=== PATIENT | male | born 1965 | race Caucasian/White ===

== ENCOUNTER → 2019-12-02 | Outpatient (CLI) | payer OTHER ==
[~2019-12-02] VITALS: Ht 177.8 cm; Wt 86.6 kg
[~2019-12-02] MED LIST: ACETAMINOPHEN325 M1 PO; ALLOPURINOL 10100 M1 PO; ALLOPURINOL 10100 M3 PO; ALUMINUM H320 MG/5 M PO; ASPIR-TRIN325 MG PO; CATAPRES0.1 MG PO; CEFUROXIME250 MG PO; COLACE100 MG PO; CRESTOR20 MG PO; DULOXETINE HCL30 MG PO; FISH OIL 1,0001 EAC8 PO; FLOMAX0.4 MG PO; FUROSEMIDE 20 M20 MG PO; GABAPENTIN100 MG PO; GLIPIZIDE 10 MG10 MG PO; HUMALOG100 UNIT/1 SUBQ; HYDRALAZINE 2525 M1 PO; LISINOPRIL-HCT1 EAC1 PO; LISINOPRIL2.5 MG PO; LITE COAT ASPI325 MG PO; LOVENOX30 MG/0.3 SUBQ; MECLIZINE HCL25 M1 PO; MELATONIN3 M1 PO; MIRALAX119 GM PO; MITIGARE0.6 MG PO; NICOTINE TRANSD14 M1 TRANSDERM; NORCO 10-325 T1 EACH PO; NORVASC 2.5 MG2.5 M1 PO; NORVASC5 M1 PO; PRADAXA150 MG PO; PROAIR HFA8.5 GM INH; SENNA8.6 MG PO; TOPROL XL25 MG PO; TRAMADOL 50 MG50 MG PO; TYLENOL325 MG PO; VITAMIN D325 MC5 PO; VOLTAREN GEL 1100 G1 TOP
[2019-12-02 09:00] VITALS: BP 172/82
--- NOTE | 2019-12-02 09:29 | EKG ---
[facility] [place] [address] ELECTROCARDIOGRAM REPORT Name: SARAH MOLINA Room #: [facility].#: [id number] Admission: 12/02/19 Attend Phys: Hugo Moyer MD Discharge: Date of : 61 Report #: [id number] THIS REPORT FOR: cc: FAM - Family physician unknown FAM - Family physician unknown Connor Rosado MD [facility] ~ THIS REPORT FOR: //name// [facility] Test Date: 2019-12-02 Test Time: 08:58:40 Pat Name: SARAH MOLINA Department: Room: Gender: Front Of House Manager: [facility] : 1965 Requested By: Hugo Moyer Order Number: [id number] MD: Connor Rosado Measurements Intervals [place] Rate: 58 P: -11 UT: 199 QRS: -38 QRSD: 88 T: 20 QT: 426 QTc: 419 Interpretive Statements Sinus rhythm Leftward axis Compared to ECG 10/03/2008 09:36:20 No significant change was found Electronically Signed On 12-02-2019 9:29:28 CDT by Connor Rosado [email or web address] <ELECTRONICALLY SIGNED> By: Connor Rosado MD, FAC 12/02/19 [id number] [id number] Connor Rosado MD, [facility] /EPI
[2019-12-02 09:36] LABS: HEMATOCRIT 45.7 % (42.0-52.0); HEMOGLOBIN 15.1 gm/dL (14.0-18.0); MCH 28.3 pg (26.0-34.0); MCHC 33.1 g/dL (28.0-37.0); MCV 85.6 fL (80.0-100.0); RBC 5.34 mil/uL (4.50-6.00); RDW 14.4 % (10.5-14.5); WBC 9.1 thou/uL (4.0-11.0)
[2019-12-02 09:58] LABS: CALCIUM 8.9 mg/dL (8.5-10.1); CREATININE 1.5 mg/dL (0.7-1.3); POTASSIUM 4.1 mmol/L (3.5-5.1)
[2019-12-02 12:15] VITALS: BP 129/65
[2019-12-02 12:30] VITALS: BP 136/67
[2019-12-02 12:45] VITALS: BP 136/67
[2019-12-02 13:35] VITALS: BP 101/70
[2019-12-02 14:52] VITALS: BP 163/77
== END | disposition home or self-care (01) ==
LOC: CATH 08:02
PROVIDERS: ATTEND Nuclear Medicine Nuclear Cardiology
DX: I70.213 Atherosclerosis of native arteries of extremities with intermittent claudication, bilateral legs (principal); I70.1 Atherosclerosis of renal artery; M86.8X7 Other osteomyelitis, ankle and foot; I10 Essential (primary) hypertension; E11.9 Type 2 diabetes mellitus without complications; E78.5 Hyperlipidemia, unspecified; K21.9 Gastro-esophageal reflux disease without esophagitis; Z98.890 Other specified postprocedural states; Z79.899 Other long term (current) drug therapy

== ENCOUNTER 2020-10-20 16:21 | Inpatient (IN) | payer OTHER ==
[~2020-10-20] VITALS: Ht 177.8 cm; Wt 71.2 kg
[~2020-10-20 16:21] MED LIST changes: -CATAPRES0.1 MG PO; +CATAPRES0.2 MG PO
[2020-10-20 17:10] VITALS: BP 122/58
[2020-10-20] MEDS ORDERED: NORVASC5 MG PO (18:11)
[2020-10-20] MEDS ORDERED: AMITRIPTYLINE H10 M1 PO (18:11)
[2020-10-20] MEDS ORDERED: ASPERCREME1 EACH TOP ×2 (18:12→18:13)
[2020-10-20] MEDS ORDERED: BACLOFEN 10MG T10 MG PO (18:14)
[2020-10-20] MEDS ORDERED: BACTRIM DS TAB1 EAC1 PO (18:16)
[2020-10-20] MEDS ORDERED: BIOFREEZE118 ML TOP (18:17)
[2020-10-20] MEDS ORDERED: CLARITIN10 M3 PO (18:21)
[2020-10-20] MEDS ORDERED: CORICIDIN COLD1 EACH PO (18:26)
[2020-10-20] MEDS ORDERED: FLONASE 0.05%50 MCG NARES (18:28)
[2020-10-20] MEDS ORDERED: HUMALOG100 UNIT/1 SUBQ (18:29)
[2020-10-20] MEDS ORDERED: HYDRALAZINE 2525 MG PO (18:30)
[2020-10-20] MEDS ORDERED: NORCO 10-325 T1 EACH PO (18:31)
[2020-10-20] MEDS ORDERED: MILK OF MA400 MG/5 M PO (18:34)
[2020-10-20] MEDS ORDERED: ONDANSETRON ODT4 MG PO (18:36)
[2020-10-20] MEDS ORDERED: PROTONIX40 M2 PO (18:36)
[2020-10-20] MEDS ORDERED: TOPROL XL25 MG PO (18:39)
[2020-10-20] MEDS ORDERED: VOLTAREN ARTHRI20 GM TOP (18:41)
[2020-10-20] MEDS ORDERED: ZADITOR5 M1 OPHTHALMIC (18:43)
--- NOTE | 2020-10-20 19:27 | NUR ---
Pt received as direct admit from senior living facility. Assessed pt. Left side weakness noted. Left hand is contacted. Unable to ambulate. Uses sunday lift in [employer] and electric wheelchairto get around. He has been a half pack smoker for last twenty years. He does not plan on stopping smoking. His lungs were diminished ambulance had him on 2L/NC. He needs assistance with all ADL's except for eating. Fall risk precaution in effect. Bed in low position. Call light within reach. Gave report to night nurse.
[2020-10-20 19:46] VITALS: BP 105/59
[2020-10-20 20:39] LABS: URINE BILIRUBIN 1+ (Negative); URINE BLOOD TRACE (Negative); URINE CLARITY CLEAR; URINE COLOR YELLOW; URINE GLUCOSE-RANDOM* NEGATIVE (Negative); URINE KETONES NEGATIVE (Negative); URINE LEUKOCYTES-REFLEX NEGATIVE (Negative); URINE NITRITE-REFLEX NEGATIVE (Negative); URINE PROTEIN (DIPSTICK) 2+ (Negative); URINE SPECIFIC GRAVITY 1.025 (1.005-1.035)
--- NOTE | 2020-10-21 02:47 | NUR ---
ASSESSED AT START OF SHIFT. PT RESTING IN BED. DENIES PAIN N/V. IV INTACT AND FLUIDS INFUSING. PT VOIDS VIA URINAL. FALL PREC IN PLACE. CLEAR LUNGS SOUNDS CALL LIGHT AT REACH. BIANCA LOWER EXT ELEVATED ON PILLOW. NO FURTHER SIGNS OF DISCOMFORT WILL CONT TO MONITOR.
[2020-10-21 04:21] VITALS: BP 112/63
[2020-10-21 05:38] LABS: ABSOLUTE NEUTROPHILS 5.8 thou/uL (1.4-8.2); BASOPHILS 0.3 % (0.0-2.0); EOSINOPHILS 1.1 % (0.0-3.0); HEMATOCRIT 40.9 % (42.0-52.0); HEMOGLOBIN 13.3 gm/dL (14.0-18.0); LYMPHOCYTES 25.7 % (24.0-44.0); MCH 28.5 pg (26.0-34.0); MCHC 32.4 g/dL (28.0-37.0); MONOCYTES 6.2 % (1.0-8.0); PLATELET COUNT 135 thou/uL (150-400); POLYS 66.7 % (36.0-66.0); RBC 4.65 mil/uL (4.50-6.00); RDW 14.7 % (10.5-14.5); WBC 8.7 thou/uL (4.0-11.0)
[2020-10-21 05:48] LABS: ALBUMIN 2.6 g/dL (3.4-5.0); CALCIUM 8.6 mg/dL (8.5-10.1); CREATININE 2.6 mg/dL (0.7-1.3); PHOSPHORUS 3.8 mg/dL (2.5-4.9); POTASSIUM 3.7 mmol/L (3.5-5.1)
[2020-10-21 07:58] VITALS: BP 129/69
--- NOTE | 2020-10-21 14:57 | NUR ---
ASSESSMENT: CM REVIEWED CHART AND SPOKE WITH PATIENT AT THE BEDSIDE. PT WAS TRANSFERRED FROM [facility]. PT HAD INCREASED REGULATORY INTERNSHIP THEY BELIEVE IS DUE TO HIM TAKING BACTRIM. PT IS ON IV FLUIDS AND PROGRESSING. PT IS FROM [facility] WHERE HE IS A LTC RESIDENT. CM SPOKE WITH MADELINE IN ADMISSIONS WHO CONFIRMS INFORMATION AND REPORTS HE HAS [place] MEDICAID. CM NOTIFIED UR RN THAT HE LIKELY HAS [place] MED[place]ID SECONDARY. PT REPORTS THAT HE IS WHEELCHAIR BOUND AND USES POWER CHAIR. PT HAS PAST HX OF CVA AND LEFT SIDED HEMIPARESIS. CM FAXED UPDATED CLINICAL TO [facility] AND NOTIFIED OF ANTICIPATED DISCHARGE SOON. PT REPORTS THAT HE DOES NOT HAVE ANY FAMILY CM NEEDS TO CONTACT AT THIS TIME. CM WILL CONTINUE TO FOLLOW TO ASSIST NEEDED.
[2020-10-21 16:38] VITALS: BP 136/70
[2020-10-21 18:54] VITALS: BP 151/70
--- NOTE | 2020-10-21 19:31 | NUR ---
ASSUMED PT CARE THIS AM. PT IS ALERT & ORIENTED X4. PT HAS IV SITE ON RFA RUNNING NS @100ML/HR. PT USES BEDPAN AND URINAL. PT IS ON ROOM AIR. PT HAS L SIDED WEAKNESS. NO C/O OF PAIN, NAUSEA AND VOMITING. PT IS ACCUCHECK ACHS. PHYSICAL AND OCCUPATIONAL THERAPY WAS WORKING WITH PT TODAY. PT TOLERATED DIET AND MEDICATION WELL. PT ON THE BED, BED ON THE LOWEST POSITION, SIDE RAILS UP, CALL LIGHT WITHIN REACH. WILL CONTINUE TO MONITOR PT. FOLLOW POC.
--- NOTE | 2020-10-22 01:42 | NUR ---
ASSESSED AT START OF SHIFT PT A&OX4. DENIES PAIN, NAUSEA AND VOMITING ON ASSESSMENT. IV INTACT AND FLUIDS INFUSING. URINAL AT BEDSIDE. PT ON RA SATS AT 99%. CLEAR LUNGS SOUNDS. REPOSITIONED PT FOR COMFORT. FALL PREC INPLACE AND CALL LIGHT AT REACH WILL CONT TO MONITOR.
[2020-10-22 04:17] VITALS: BP 153/74
[2020-10-22 06:06] LABS: ALBUMIN 2.5 g/dL (3.4-5.0); CALCIUM 8.5 mg/dL (8.5-10.1); CREATININE 1.9 mg/dL (0.7-1.3); POTASSIUM 3.5 mmol/L (3.5-5.1)
[2020-10-22 07:15] VITALS: BP 179/80
--- NOTE | 2020-10-22 12:02 | NUR ---
on-going assessment: CM REVIEWED CHART AND SPOKE WITH ATTENDING WHO REPORTS PT WILL LIKELY DISCHARGE BACK TO HIS FACILITY TOMORROW. PTS FORK OPERATOR STILL ELEVATED AT 1.9 BUT IMPROVING. CM UPDATED YENY CORREA IN ADMISSIONS AT [facility] AND ALSO FAXED UPDATED CLINICAL. CM WILL CONTINUE TO FOLLOW TO ASSIST NEEDED.
--- NOTE | 2020-10-22 14:09 | NUR ---
PT ASSESSED THIS AM. DOING BETTER NOW. CR DOWN- VOIDING WELL W/ IV FLUIDS. IS CONSTIPATED AND FEELING FULL. MIRALAX AND SOFTENER GIVEN. NO RESULTS SD YET. POSSIBLE DC IN AM.
[2020-10-22 16:00] VITALS: BP 157/81
[2020-10-22 20:07] VITALS: BP 154/73
[2020-10-23 04:02] LABS: ALBUMIN 2.4 g/dL (3.4-5.0); CALCIUM 8.5 mg/dL (8.5-10.1); CREATININE 1.6 mg/dL (0.7-1.3); PHOSPHORUS 2.6 mg/dL (2.5-4.9); POTASSIUM 3.7 mmol/L (3.5-5.1)
[2020-10-23 04:40] VITALS: BP 145/74
[2020-10-23 07:00] VITALS: BP 140/66
--- NOTE | 2020-10-23 07:55 | NUR ---
UPON SHIFT ASSESSMENT, PT AOX4, NOTABLY HARD OF HEARING. PT REPORTS 7/10 TENDER LIKE PAIN IN BILATERAL FEET. PT HAS PRN PO TRAMADOL Q4HR AVAILABLE, REFUSING ADMINISTRATION. PT DENIES SOB WHILE ON ROOM AIR. PT TOLERATING PO INTAKE OF FLUIDS AND HEART HEALTHY DIET WITHOUT ISSUE, PT REFUSED ACHS BLOOD SUGAR CHECK, REMAINS ASYMPTOMATIC. PT VOIDING PER URINAL. PT RESTING IN BED THROUGHOUT SHIFT, FREQUENT REPOSITIONING ENCOURAGED WHILE IN BED, PT NOTED TO SHIFT INDEPENDENTLY. SENSATION INTACT, CAPILLARY REFILL LESS THAN 3SEC, AND PERIPHERAL PULSES PALPABLE IN ALL EXTREMITIES. PT ENCOURAGED TO NOTIFY STAFF FOR ALL NEEDS, CALL LIGHT WITHIN REACH, BED ALARM ON, BED LOCKED IN LOWEST POSITION, FREQUENT MONITORING WILL CONTINUE.
--- NOTE | 2020-10-23 10:33 | NUR ---
ASSUMED CARE OF THE PT AT 0700 THIS MORNING. PT WAS A/OX4, SKIN INTACT, NO TENTING, FEET ARE TENDER TO THE TOUCH, HARD OF HEARING AND ADMITTED FOR UTI. PT IS REFUSING TRAMADOL FOR THE PAIN IN THE FEET AND REQUESTING HYDROCODONE OR OXYCODONE. CONTACTED DR. HOLCOMB AND WAITING FOR RESPONSE. ASSESSMENTS CHARTED AND OTHERWISE UNREMARKABLE. CALL LIGHT AND OTHER NEEDS ARE WITHIN REACH. MEDS AND TX GIVEN NEEDED AND SCHEDULED.
[2020-10-23] MEDS ORDERED: ASPIRIN325 PO (14:20)
--- NOTE | 2020-10-23 14:43 | NUR ---
ASSESSMENT: CM REVIEWED CHART AND SPOKE WITH ATTENDING WELL PATIENT. PT IS STABLE TO DISCHARGE BACK TO HIS FACILITY TODAY AT [facility]. CM NOTIFIED MADELINE IN ADMISSIONS VIA . CM FAXED DISCHARGE PAPERWORK TO FACILITY AND CONFIRMED THEY RECEIVED IT. CHART COPY WAS ORDERED. BEDSIDE RN AWARE OF THE NUMBER FOR REPORT. FACILITY DOES NOT PROVIDE TRANSPORTATION AND REQUESTING WE ARRANGE IT. CM NOTIFIED CM DIRECTOR OF AND SHE [employer] APPROVED FOR TO ARRANGE TRANSPORT. CM CONTACTED [facility] AND TRANSPORTATION IS ARRANGED FOR 530-600PM PICKUP. CM NOTIFIED BEDSIDE RN WELL FACILITY. BEDSIDE RN HAS THE NUMBER FOR REPORT. PT REPORTS HE WILL NOTIFY FAMILY. CASE CLOSED.
[2020-10-23 15:29] VITALS: BP 136/78
== END 2020-10-23 19:00 | DRG 682 ==
LOC: 4S 16:21
PROVIDERS: Hospitalist; Nurse Practitioner; ADMIT Internal Medicine; ATTEND Hospitalist
DX: N17.0 Acute kidney failure with tubular necrosis (principal); E43 Unspecified severe protein-calorie malnutrition; I69.354 Hemiplegia and hemiparesis following cerebral infarction affecting left non-dominant side; E78.5 Hyperlipidemia, unspecified; E11.42 Type 2 diabetes mellitus with diabetic polyneuropathy; M19.90 Unspecified osteoarthritis, unspecified site; N18.9 Chronic kidney disease, unspecified; I12.9 Hypertensive chronic kidney disease with stage 1 through stage 4 chronic kidney disease, or unspecified chronic kidney disease; E11.22 Type 2 diabetes mellitus with diabetic chronic kidney disease; R53.81 Other malaise; T36.8X5A Adverse effect of other systemic antibiotics, initial encounter; Y92.89 Other specified places as the place of occurrence of the external cause; Z86.718 Personal history of other venous thrombosis and embolism; Z99.3 Dependence on wheelchair; Z71.6 Tobacco abuse counseling; Z79.82 Long term (current) use of aspirin; Z79.899 Other long term (current) drug therapy; Z82.49 Family history of ischemic heart disease and other diseases of the circulatory system; Z87.891 Personal history of nicotine dependence; Z68.22 Body mass index [BMI] 22.0-22.9, adult
CPT/HCPCS: 10102